=== PATIENT | female | born 1955 | race Caucasian/White ===

== ENCOUNTER 2017-02-20 12:03 | Inpatient (IN) | payer BC ==
[~2017-02-20] VITALS: Ht 157.5 cm; Wt 53.5 kg
[2017-02-20 12:03] VITALS: BP_SYST 163
[~2017-02-20 12:03] MED LIST: AMLO5TAB4 PO; FAMO20TA8 PO; HYDR-1189 PO; LOSA50TA3 PO; TRAM50TA92 PO
[2017-02-20] MEDS ORDERED: NACL 0.9% 1,000 ML IV SCH (12:37)
[2017-02-20] MEDS ORDERED: MORPHINE 4 MG/ML INJ. SYRINGE IVP ONE (12:45)
[2017-02-20] MEDS ORDERED: ONDANSETRON HCL 4 MG/2 ML VIAL IVP ONE (12:45)
[2017-02-20 12:51] LABS: BASOPHILS # (AUTO) 0.3 K/uL (0.0-0.2); BASOPHILS % (AUTO) 2.9 % (0.0-2.0); EOSINOPHILS % (AUTO) 0.1 % (0.0-4.0); HEMATOCRIT 49.8 % (36-48); LYMPHOCYTES # (AUTO) 0.9 K/uL (1.0-5.5); LYMPHOCYTES % (AUTO) 10.7 % (20.5-51.5); MEAN CORPUSCULAR HEMOGLOBIN 32 pg (27-31); MEAN CORPUSCULAR HGB CONC 34 % (32-36); MEAN CORPUSCULAR VOLUME 93 fL (79.0-98.0); MONOCYTES # (AUTO) 0.3 K/uL (0.0-1.0); MONOCYTES % (AUTO) 3.7 % (1.7-9.3); NEUTROPHILS # (AUTO) 7.2 K/uL (1.8-7.7); NEUTROPHILS % (AUTO) 82.6 % (40.0-70.0); PLATELET COUNT (AUTO) 301 K/uL (130-430); RED BLOOD CELL COUNT(AUTO) 5.35 MIL/uL (4.2-6.2); RED CELL DISTRIBUTION WIDTH 12.9 % (9.0-15.0); WHITE BLOOD COUNT (AUTO) 8.7 K/uL (4.8-10.8)
[2017-02-20 13:05] LABS: CALCIUM 9.4 mg/dL (8.4-11.0); CREATININE 0.65 mg/dL (0.55-1.30); POTASSIUM 3.5 mmol/L (3.5-5.1)
[2017-02-20 13:06] LABS: INR 1.1 (0.8-1.2); PROTHROMBIN TIME 12.3 SECS (9.5-12.5)
[2017-02-20 13:09] LABS: ALBUMIN 4.3 g/dL (3.4-4.8); TOTAL BILIRUBIN 0.4 mg/dL (0.0-1.0); TOTAL PROTEIN, SERUM 7.1 g/dL (6.4-8.3)
[2017-02-20] MEDS ORDERED: VANCOMYCIN HCL 1,000 MG in NS 250 ML IV ONE (14:15)
[2017-02-20] MEDS ORDERED: MORPHINE 2 MG/ML INJ. SYRINGE IVP ONE (14:30)
[2017-02-20] MEDS ORDERED: VANCOMYCIN HCL 1000 MG/VIAL IV ONE (15:04)
[2017-02-20 15:36] LABS: BILIRUBIN,URINE NEGATIVE (NEGATIVE); BLOOD, URINE 2+ (NEGATIVE); CLARITY/URINE CLOUDY (CLEAR); COLOR,URINE YELLOW (YELLOW); GLUCOSE,URINE NEGATIVE (NEGATIVE); KETONES,URINE 1+ (NEGATIVE); LEUKOCYTE ESTERASE ,URINE NEGATIVE (NEGATIVE); NITRITE, URINE NEGATIVE (NEGATIVE); PROTEIN URINE NEGATIVE (NEGATIVE); UROBILINOGEN,URINE 0.2 (0.2-1.0)
[2017-02-20 15:54] LABS: BACTERIA,URINE MODERATE /HPF (None Seen); MUCUS,URINE None Seen /LPF (None Seen); URINE AMORPHOUS PHOSPHATES 3+ /HPF (None Seen); WBC,URINE 0-3 /HPF (0-3)
[2017-02-20 17:00] VITALS: BP_SYST 134
[2017-02-20] MEDS ORDERED: ACETAMINOPHEN 325 MG TABLET PO PRN (17:00)
[2017-02-20] MEDS: D5NS 1,000 ML IV SCH (17:35)
[2017-02-20] MEDS: ONDANSETRON HCL 4 MG/2 ML VIAL IVP PRN (17:42)
[2017-02-20] MEDS: metroNIDAZOLE 500 mg/NS 100 ML IV SCH ×2 (17:42→21:31)
[2017-02-20] MEDS: MORPHINE 4 MG/ML INJ. SYRINGE IVP PRN ×2 (17:43→21:29)
[2017-02-20] MEDS: METOCLOPRAMIDE HCL 10 MG/2 ML VIAL IVP PRN (19:54)
[2017-02-20 20:00] VITALS: BP_SYST 121
[2017-02-21 00:05] VITALS: BP_SYST 124
[2017-02-21] MEDS: MORPHINE 4 MG/ML INJ. SYRINGE IVP PRN ×5 (03:09→23:47)
[2017-02-21] MEDS: ONDANSETRON HCL 4 MG/2 ML VIAL IVP PRN ×4 (03:09→23:47)
[2017-02-21 03:40] VITALS: BP_SYST 136
[2017-02-21] MEDS: metroNIDAZOLE 500 mg/NS 100 ML IV SCH ×3 (05:07→21:09)
[2017-02-21] MEDS: D5NS 1,000 ML IV SCH ×3 (05:07→23:52)
[2017-02-21 08:00] VITALS: BP_SYST 165
[2017-02-21] MEDS: LEVOFLOXACIN 500 MG/D5W 100 ML IV SCH (08:51)
[2017-02-21 12:48] VITALS: BP_SYST 147
[2017-02-21] MEDS: METOCLOPRAMIDE HCL 10 MG/2 ML VIAL IVP PRN (12:50)
[2017-02-21 16:00] VITALS: BP_SYST 139
[2017-02-21 20:00] VITALS: BP_SYST 151
[2017-02-21] MEDS: MORPHINE 2 MG/ML INJ. SYRINGE IVP PRN (20:29)
[2017-02-22 04:27] VITALS: BP_SYST 139
[2017-02-22] MEDS: metroNIDAZOLE 500 mg/NS 100 ML IV SCH ×3 (05:41→22:36)
[2017-02-22] MEDS: MORPHINE 4 MG/ML INJ. SYRINGE IVP PRN ×3 (05:50→22:38)
[2017-02-22] MEDS: METOCLOPRAMIDE HCL 10 MG/2 ML VIAL IVP PRN (05:51)
[2017-02-22] MEDS ORDERED: MEPERIDINE HCL/PF 100 MG/ML AMP ONE (07:53)
[2017-02-22] MEDS ORDERED: SIMETHICONE 40 MG/0.6 ML ML ONE (07:53)
[2017-02-22 08:00] VITALS: BP_SYST 141
[2017-02-22] MEDS: LEVOFLOXACIN 500 MG/D5W 100 ML IV SCH (10:03)
[2017-02-22] MEDS: D5NS 1,000 ML IV SCH ×2 (10:04→18:23)
[2017-02-22] MEDS: ONDANSETRON HCL 4 MG/2 ML VIAL IVP PRN ×2 (10:10→18:31)
[2017-02-22 12:00] VITALS: BP_SYST 107
[2017-02-22] MEDS: MIDAZOLAM HCL 5 MG/5 ML VIAL ONE ×4 (13:43→13:50)
[2017-02-22] MEDS ORDERED: SORBITOL 70% SOLUTION, 30 ML UDBTL PO ONE (14:00)
[2017-02-22] MEDS ORDERED: PANTOPRAZOLE SODIUM 40 MG TAB PO ONE (14:15)
[2017-02-22] MEDS: LACTULOSE 20 GM/30 ML UDC PO SCH ×3 (15:28→22:36)
[2017-02-22 16:00] VITALS: BP_SYST 135
[2017-02-22] MEDS ORDERED: BISACODYL 5 MG TABLET.DR (DULCOLAX) PO ONE (17:00)
[2017-02-22] MEDS ORDERED: MAGNESIUM CITRATE 300 ML ORAL SOLUTION PO ONE (19:00)
[2017-02-22 19:50] VITALS: BP_SYST 155
[2017-02-23 01:15] VITALS: BP_SYST 154
[2017-02-23] MEDS: MORPHINE 4 MG/ML INJ. SYRINGE IVP PRN (02:32)
[2017-02-23 04:09] VITALS: BP_SYST 156
[2017-02-23] MEDS: metroNIDAZOLE 500 mg/NS 100 ML IV SCH ×3 (05:30→21:08)
[2017-02-23] MEDS: D5NS 1,000 ML IV SCH ×2 (05:33→23:32)
[2017-02-23] MEDS ORDERED: SIMETHICONE 40 MG/0.6 ML ML ONE (06:51)
[2017-02-23] MEDS ORDERED: MEPERIDINE HCL/PF 100 MG/ML AMP ONE (06:55)
[2017-02-23] MEDS: MIDAZOLAM HCL 5 MG/5 ML VIAL ONE ×3 (07:17→07:24)
[2017-02-23] MEDS: MEPERIDINE HCL/PF 100 MG/ML AMP ONE ×2 (07:17→07:27)
[2017-02-23 07:20] LABS: BASOPHILS # (AUTO) 0.1 K/uL (0.0-0.2); BASOPHILS % (AUTO) 0.6 % (0.0-2.0); EOSINOPHILS # (AUTO) 0.1 K/uL (0.0-0.4); EOSINOPHILS % (AUTO) 1.5 % (0.0-4.0); HEMATOCRIT 45.9 % (36-48); HEMOGLOBIN 15.7 g/dL (12.0-16.0); LYMPHOCYTES # (AUTO) 2.6 K/uL (1.0-5.5); LYMPHOCYTES % (AUTO) 29.2 % (20.5-51.5); MEAN CORPUSCULAR HEMOGLOBIN 32 pg (27-31); MEAN CORPUSCULAR HGB CONC 34 % (32-36); MEAN CORPUSCULAR VOLUME 94 fL (79.0-98.0); MONOCYTES # (AUTO) 0.9 K/uL (0.0-1.0); MONOCYTES % (AUTO) 10.7 % (1.7-9.3); NEUTROPHILS # (AUTO) 5.1 K/uL (1.8-7.7); PLATELET COUNT (AUTO) 260 K/uL (130-430); RED BLOOD CELL COUNT(AUTO) 4.89 MIL/uL (4.2-6.2); RED CELL DISTRIBUTION WIDTH 12.5 % (9.0-15.0); WHITE BLOOD COUNT (AUTO) 8.8 K/uL (4.8-10.8)
[2017-02-23 07:29] LABS: CALCIUM 8.6 mg/dL (8.4-11.0)
[2017-02-23 07:33] LABS: INR 1.1 (0.8-1.2); PROTHROMBIN TIME 12.1 SECS (9.5-12.5)
[2017-02-23 08:17] LABS: CREATININE 0.69 mg/dL (0.55-1.30)
[2017-02-23 08:30] VITALS: BP_SYST 150
[2017-02-23] MEDS ORDERED: DIPHENHYDRAMINE INJ 50 MG/ML VIAL ONE (08:43)
[2017-02-23] MEDS: LEVOFLOXACIN 500 MG/D5W 100 ML IV SCH (09:55)
[2017-02-23] MEDS: PANTOPRAZOLE SODIUM 40 MG TAB PO SCH (09:55)
[2017-02-23 12:00] VITALS: BP_SYST 154
[2017-02-23] MEDS ORDERED: IOHEXOL 350 mgI/mL, 150 ML INFUS..BTL IV ONE (12:21)
[2017-02-23 16:58] VITALS: BP_SYST 147
[2017-02-23] MEDS: ONDANSETRON HCL 4 MG/2 ML VIAL IVP PRN (18:11)
[2017-02-23 20:00] VITALS: BP_SYST 151
[2017-02-23] MEDS: MORPHINE 2 MG/ML INJ. SYRINGE IVP PRN (21:10)
[2017-02-24 00:42] VITALS: BP_SYST 143
[2017-02-24 04:00] VITALS: BP_SYST 136
[2017-02-24] MEDS: metroNIDAZOLE 500 mg/NS 100 ML IV SCH (05:00)
[2017-02-24 08:00] VITALS: BP_SYST 161
[2017-02-24] MEDS: LEVOFLOXACIN 500 MG/D5W 100 ML IV SCH (08:45)
[2017-02-24] MEDS: PANTOPRAZOLE SODIUM 40 MG TAB PO SCH (08:45)
[2017-02-24] MEDS ORDERED: LEVO500T20 PO (11:25)
[2017-02-24] MEDS ORDERED: METR500T PO (11:25)
[2017-02-24 11:27] VITALS: BP_SYST 161
== END 2017-02-24 11:45 | disposition home or self-care (01) | DRG 391 ==
LOC: SED 12:03 → SMU 14:52
PROVIDERS: ADMIT Internal Medicine Hospice and Palliative Medicine; ATTEND Internal Medicine Hospice and Palliative Medicine
PROC: 0DB68ZX Excision of Stomach, Via Natural or Artificial Opening Endoscopic, Diagnostic (ICD-10-PCS; 2017-02-22)
PROC: 0DB98ZX Excision of Duodenum, Via Natural or Artificial Opening Endoscopic, Diagnostic (ICD-10-PCS; principal; 2017-02-22 13:00)
PROC: 0DBB8ZX Excision of Ileum, Via Natural or Artificial Opening Endoscopic, Diagnostic (ICD-10-PCS; 2017-02-23)
PROC: 0DBE8ZX Excision of Large Intestine, Via Natural or Artificial Opening Endoscopic, Diagnostic (ICD-10-PCS; 2017-02-23)
PROC: 0DBL8ZX Excision of Transverse Colon, Via Natural or Artificial Opening Endoscopic, Diagnostic (ICD-10-PCS; 2017-02-23)
DX: K57.32 Diverticulitis of large intestine without perforation or abscess without bleeding (principal); K55.039 Acute (reversible) ischemia of large intestine, extent unspecified; K55.1 Chronic vascular disorders of intestine; I10 Essential (primary) hypertension; F17.200 Nicotine dependence, unspecified, uncomplicated; K29.70 Gastritis, unspecified, without bleeding; K58.9 Irritable bowel syndrome, unspecified; K63.5 Polyp of colon; D12.3 Benign neoplasm of transverse colon; K64.8 Other hemorrhoids; R63.4 Abnormal weight loss; E78.00 Pure hypercholesterolemia, unspecified; Z90.49 Acquired absence of other specified parts of digestive tract; Z79.899 Other long term (current) drug therapy; Z90.710 Acquired absence of both cervix and uterus; K90.0 Celiac disease
CPT/HCPCS: 36415; 43239; 45380; 71010; 74175; 80048; 80053; 81000-TC; 83605; 83690-TC; 84484; 85025; 85610-TC; 85651-TC; 85730-TC; 87040-TC; 87081; 87086; 88305; 88312; 93005; 96365; 96367; 96368; 96375; 96376; 99285; J1200; J1956; J2175; J2250; J2270; J2405; J2765; J3370; J3490; J7030; J7042; J7060; Q9967

== ENCOUNTER 2017-05-15 15:37 | Inpatient (IN) | payer BC ==
[~2017-05-15] VITALS: Ht 160 cm; Wt 52.2 kg
[2017-05-15 15:37] VITALS: BP_SYST 147
[~2017-05-15 15:37] MED LIST changes: +LEVO500T20 PO; +METR500T PO
[2017-05-15] MEDS ORDERED: PIPERACILLIN/TAZO 3.38 GM in NS 50 ML IV ONE (16:00)
[2017-05-15] MEDS ORDERED: MORPHINE 4 MG/ML INJ. SYRINGE IVP ONE (16:00)
[2017-05-15] MEDS ORDERED: DIPHENHYDRAMINE INJ 50 MG/ML VIAL IVP ONE (16:00)
[2017-05-15] MEDS ORDERED: PIPERACILLIN/TAZOBACTAM 3.375 GM/VIAL (ZOSYN) IV ONE (16:08)
[2017-05-15 16:20] LABS: BASOPHILS % (AUTO) 0.3 % (0.0-2.0); HEMATOCRIT 51.8 % (36-48); HEMOGLOBIN 17.4 g/dL (12.0-16.0); LYMPHOCYTES # (AUTO) 0.6 K/uL (1.0-5.5); LYMPHOCYTES % (AUTO) 6.3 % (20.5-51.5); MEAN CORPUSCULAR HEMOGLOBIN 32 pg (27-31); MEAN CORPUSCULAR HGB CONC 34 % (32-36); MEAN CORPUSCULAR VOLUME 95 fL (79.0-98.0); MONOCYTES # (AUTO) 0.2 K/uL (0.0-1.0); MONOCYTES % (AUTO) 2.4 % (1.7-9.3); PLATELET COUNT (AUTO) 319 K/uL (130-430); RED BLOOD CELL COUNT(AUTO) 5.46 MIL/uL (4.2-6.2); RED CELL DISTRIBUTION WIDTH 13.1 % (9.0-15.0); WHITE BLOOD COUNT (AUTO) 9.8 K/uL (4.8-10.8)
[2017-05-15 16:29] LABS: CALCIUM 9.5 mg/dL (8.4-11.0); CREATININE 0.59 mg/dL (0.55-1.30); POTASSIUM 3.9 mmol/L (3.5-5.1)
[2017-05-15 16:33] LABS: ALBUMIN 4.6 g/dL (3.4-4.8); INR 1.1 (0.8-1.2); PROTHROMBIN TIME 12.1 SECS (9.5-12.5); TOTAL BILIRUBIN 0.8 mg/dL (0.0-1.0)
[2017-05-15 16:45] LABS: BILIRUBIN,URINE NEGATIVE (NEGATIVE); BLOOD, URINE 2+ (NEGATIVE); CLARITY/URINE HAZY (CLEAR); COLOR,URINE YELLOW (YELLOW); GLUCOSE,URINE NEGATIVE (NEGATIVE); KETONES,URINE 3+ (NEGATIVE); LEUKOCYTE ESTERASE ,URINE NEGATIVE (NEGATIVE); NITRITE, URINE NEGATIVE (NEGATIVE); PROTEIN URINE TRACE (NEGATIVE); UROBILINOGEN,URINE 0.2 (0.2-1.0)
[2017-05-15 17:54] LABS: BACTERIA,URINE FEW /HPF (None Seen); WBC,URINE 0-3 /HPF (0-3)
[2017-05-15 17:55] LABS: COARSE GRANULAR CASTS,URINE 0-10 /LPF (None Seen); MUCUS,URINE 2+ /LPF (None Seen); URINE AMORPHOUS PHOSPHATES 2+ /HPF (None Seen)
[2017-05-15] MEDS ORDERED: NACL 0.9% 1,000 ML IV ONE (18:00)
[2017-05-15] MEDS ORDERED: ONDANSETRON HCL 4 MG/2 ML VIAL IVP ONE (18:30)
[2017-05-15] MEDS ORDERED: HYDROmorphone 1 MG INJ. 1 MG/ML AMPUL IVP ONE (18:30)
[2017-05-15 18:45] VITALS: BP_SYST 159
[2017-05-15 19:15] VITALS: BP_SYST 125
[2017-05-15] MEDS ORDERED: cloNIDine HCL 0.1 MG TABLET PO PRN (19:15)
[2017-05-15] MEDS ORDERED: ACETAMINOPHEN 325 MG TABLET PO PRN (19:15)
[2017-05-15 19:30] VITALS: BP_SYST 108
[2017-05-15] MEDS: FAMOTIDINE PF 20 MG/2 ML VIAL IVP SCH (20:40)
[2017-05-15] MEDS: DOCUSATE SODIUM 250 MG CAPSULE PO SCH (20:40)
[2017-05-15] MEDS: LR 1,000 ML IV SCH (20:43)
[2017-05-16] VITALS: BP_SYST 144
[2017-05-16] MEDS: PIPERACILLIN/TAZO 3.375/DEX-IS 50 ML IV SCH ×5 (00:24→23:34)
[2017-05-16] MEDS: HYDROmorphone 1 MG INJ. 1 MG/ML AMPUL IVP PRN ×4 (00:25→17:44)
[2017-05-16] MEDS: ONDANSETRON HCL 4 MG/2 ML VIAL IVP PRN ×2 (03:28→20:10)
[2017-05-16] MEDS: MORPHINE 4 MG/ML INJ. SYRINGE IVP PRN (03:29)
[2017-05-16 05:54] VITALS: BP_SYST 120
[2017-05-16 07:13] LABS: BASOPHILS # (AUTO) 0.1 K/uL (0.0-0.2); BASOPHILS % (AUTO) 0.5 % (0.0-2.0); EOSINOPHILS # (AUTO) 0.1 K/uL (0.0-0.4); EOSINOPHILS % (AUTO) 0.4 % (0.0-4.0); HEMATOCRIT 41.8 % (36-48); HEMOGLOBIN 14.3 g/dL (12.0-16.0); LYMPHOCYTES # (AUTO) 2.8 K/uL (1.0-5.5); LYMPHOCYTES % (AUTO) 21.2 % (20.5-51.5); MEAN CORPUSCULAR HEMOGLOBIN 33 pg (27-31); MEAN CORPUSCULAR HGB CONC 34 % (32-36); MEAN CORPUSCULAR VOLUME 96 fL (79.0-98.0); MONOCYTES # (AUTO) 1.4 K/uL (0.0-1.0); MONOCYTES % (AUTO) 10.4 % (1.7-9.3); NEUTROPHILS # (AUTO) 8.8 K/uL (1.8-7.7); NEUTROPHILS % (AUTO) 67.5 % (40.0-70.0); PLATELET COUNT (AUTO) 246 K/uL (130-430); RED BLOOD CELL COUNT(AUTO) 4.37 MIL/uL (4.2-6.2); RED CELL DISTRIBUTION WIDTH 12.9 % (9.0-15.0); WHITE BLOOD COUNT (AUTO) 13.2 K/uL (4.8-10.8)
[2017-05-16 07:30] LABS: ALANINE AMINOTRANSFERASE 18 U/L (12-78); ALBUMIN 3.4 g/dL (3.4-4.8); ANION GAP 6 (5-15); ASPARTATE AMINOTRANSFERASE 14 U/L (10-37); CALCIUM 8.2 mg/dL (8.4-11.0); CHLORIDE 99 mmol/L (98-107); CREATININE 0.61 mg/dL (0.55-1.30); GLUCOSE 102 mg/dL (70-99); POTASSIUM 3.3 mmol/L (3.5-5.1); SODIUM SERUM 135 mmol/L (136-145); TOTAL BILIRUBIN 0.7 mg/dL (0.0-1.0); TOTAL PROTEIN, SERUM 6.2 g/dL (6.4-8.3); UREA NITROGEN, BLOOD 5 mg/dL (8-21)
[2017-05-16 07:36] LABS: C-REACTIVE PROTEIN QUANT < 0.2 mg/dL (0-0.5); GFR AFRICAN AMERICAN 129 mL/min (>90)
[2017-05-16] MEDS: LOSARTAN POTASSIUM 50 MG TABLET (COZAAR) PO SCH (08:28)
[2017-05-16] MEDS: DOCUSATE SODIUM 250 MG CAPSULE PO SCH ×2 (08:28→20:10)
[2017-05-16] MEDS: FAMOTIDINE PF 20 MG/2 ML VIAL IVP SCH ×2 (08:28→20:11)
[2017-05-16] MEDS: amLODIPine BESYLATE 5 MG TABLET PO SCH (08:29)
[2017-05-16] MEDS: NICOTINE 21 MG/24 HR PATCH.TD24 TD SCH (08:29)
[2017-05-16 08:36] VITALS: BP_SYST 135
[2017-05-16 08:57] LABS: ERYTHROCYTE SEDIMENTATION RATE 1 MM/HR (0-20)
[2017-05-16] MEDS: LR 1,000 ML IV SCH ×2 (10:58→21:57)
[2017-05-16] MEDS ORDERED: POTASSIUM CHLORIDE 20 MEQ TAB.PRT.SR PO ONE (11:15)
[2017-05-16 12:45] VITALS: BP_SYST 124
[2017-05-16] MEDS: HYDROcodone/ACETAMIN 5-325 MG TAB (NORCO/ VICODIN) PO PRN (14:32)
[2017-05-16] MEDS: metroNIDAZOLE 500 MG TABLET PO SCH ×2 (14:34→21:57)
[2017-05-16 16:13] VITALS: BP_SYST 117
[2017-05-16 20:00] VITALS: BP_SYST 130
[2017-05-17] VITALS (7 sets, daily range): BP systolic 127–159
[2017-05-17] MEDS: LR 1,000 ML IV SCH ×3 (01:15→20:13)
[2017-05-17] MEDS: HYDROcodone/ACETAMIN 5-325 MG TAB (NORCO/ VICODIN) PO PRN (04:57)
[2017-05-17] MEDS: metroNIDAZOLE 500 MG TABLET PO SCH ×3 (05:47→21:33)
[2017-05-17] MEDS: PIPERACILLIN/TAZO 3.375/DEX-IS 50 ML IV SCH ×4 (05:49→23:09)
[2017-05-17 07:27] LABS: ALBUMIN 3.4 g/dL (3.4-4.8); CALCIUM 8.3 mg/dL (8.4-11.0); CREATININE 0.55 mg/dL (0.55-1.30); POTASSIUM 3.6 mmol/L (3.5-5.1); TOTAL BILIRUBIN 0.6 mg/dL (0.0-1.0); TOTAL PROTEIN, SERUM 6.2 g/dL (6.4-8.3)
[2017-05-17 07:29] LABS: BASOPHILS # (AUTO) 0.1 K/uL (0.0-0.2); EOSINOPHILS # (AUTO) 0.1 K/uL (0.0-0.4); EOSINOPHILS % (AUTO) 0.9 % (0.0-4.0); HEMATOCRIT 44.2 % (36-48); HEMOGLOBIN 14.9 g/dL (12.0-16.0); LYMPHOCYTES # (AUTO) 1.8 K/uL (1.0-5.5); MEAN CORPUSCULAR HEMOGLOBIN 32 pg (27-31); MEAN CORPUSCULAR HGB CONC 34 % (32-36); MEAN CORPUSCULAR VOLUME 96 fL (79.0-98.0); MONOCYTES # (AUTO) 0.8 K/uL (0.0-1.0); MONOCYTES % (AUTO) 10.5 % (1.7-9.3); NEUTROPHILS # (AUTO) 4.8 K/uL (1.8-7.7); NEUTROPHILS % (AUTO) 64.6 % (40.0-70.0); PLATELET COUNT (AUTO) 244 K/uL (130-430); RED BLOOD CELL COUNT(AUTO) 4.63 MIL/uL (4.2-6.2); RED CELL DISTRIBUTION WIDTH 13.2 % (9.0-15.0); WHITE BLOOD COUNT (AUTO) 7.6 K/uL (4.8-10.8)
[2017-05-17] MEDS: HYDROmorphone 1 MG INJ. 1 MG/ML AMPUL IVP PRN ×3 (08:57→20:25)
[2017-05-17] MEDS: DOCUSATE SODIUM 250 MG CAPSULE PO SCH (09:00)
[2017-05-17] MEDS: FAMOTIDINE PF 20 MG/2 ML VIAL IVP SCH ×2 (09:00→20:12)
[2017-05-17] MEDS: ONDANSETRON HCL 4 MG/2 ML VIAL IVP PRN ×2 (09:00→16:23)
[2017-05-17] MEDS: NICOTINE 21 MG/24 HR PATCH.TD24 TD SCH (09:01)
[2017-05-17] MEDS: amLODIPine BESYLATE 5 MG TABLET PO SCH (10:25)
[2017-05-17] MEDS: LOSARTAN POTASSIUM 50 MG TABLET (COZAAR) PO SCH (10:25)
[2017-05-17] MEDS ORDERED: DICYCLOMINE HCL 10 MG CAPSULE PO ONE (10:30)
[2017-05-17] MEDS: DICYCLOMINE HCL 10 MG CAPSULE PO SCH (20:12)
[2017-05-17] MEDS: MORPHINE 4 MG/ML INJ. SYRINGE IVP PRN (23:15)
[2017-05-18 01:02] VITALS: BP_SYST 154
[2017-05-18] MEDS: metroNIDAZOLE 500 MG TABLET PO SCH (05:11)
[2017-05-18] MEDS: PIPERACILLIN/TAZO 3.375/DEX-IS 50 ML IV SCH (05:12)
[2017-05-18 06:06] VITALS: BP_SYST 153
[2017-05-18] MEDS: LR 1,000 ML IV SCH (07:15)
[2017-05-18] MEDS: LOSARTAN POTASSIUM 50 MG TABLET (COZAAR) PO SCH (08:24)
[2017-05-18] MEDS: NICOTINE 21 MG/24 HR PATCH.TD24 TD SCH (08:24)
[2017-05-18] MEDS: DICYCLOMINE HCL 10 MG CAPSULE PO SCH (08:24)
[2017-05-18] MEDS: FAMOTIDINE PF 20 MG/2 ML VIAL IVP SCH (08:24)
[2017-05-18] MEDS: amLODIPine BESYLATE 5 MG TABLET PO SCH (08:25)
[2017-05-18] MEDS ORDERED: DICY10CA59 (10:41)
[2017-05-18] MEDS ORDERED: FLA250 PO (10:41)
== END 2017-05-18 11:31 | disposition home or self-care (01) | DRG 392 ==
LOC: SED 15:37 → STU 18:20
PROVIDERS: ADMIT Internal Medicine; ATTEND Internal Medicine Hospice and Palliative Medicine
DX: K57.92 Diverticulitis of intestine, part unspecified, without perforation or abscess without bleeding (principal); K55.1 Chronic vascular disorders of intestine; F41.9 Anxiety disorder, unspecified; I10 Essential (primary) hypertension; F17.200 Nicotine dependence, unspecified, uncomplicated; Z90.49 Acquired absence of other specified parts of digestive tract; Z90.710 Acquired absence of both cervix and uterus; Z79.899 Other long term (current) drug therapy; Z71.6 Tobacco abuse counseling
CPT/HCPCS: 36415; 71010; 76856-TC; 80053; 80061; 81000-TC; 83605; 83690-TC; 85025; 85610-TC; 85651-TC; 86140; 87040-TC; 93005; 96361; 96365; 96375; 99285; J1170; J1200; J2270; J2405; J2543; J3490; J7030; J7120

== ENCOUNTER 2017-05-20 10:23 | Inpatient (IN) | payer BC ==
[~2017-05-20] VITALS: Ht 162.6 cm; Wt 50.8 kg
[~2017-05-20 10:23] MED LIST changes: +DICY10CA59; +FLA250 PO; -METR500T PO
[2017-05-20 10:25] VITALS: BP_SYST 169
[2017-05-20] MEDS ORDERED: ONDANSETRON HCL 4 MG/2 ML VIAL IVP ONE ×2 (10:45→12:30)
[2017-05-20] MEDS ORDERED: fentaNYL CITRATE/PF 100 MCG/2 ML AMP IVP ONE (10:45)
[2017-05-20 10:58] LABS: BASOPHILS # (AUTO) 0.2 K/uL (0.0-0.2); BASOPHILS % (AUTO) 1.7 % (0.0-2.0); EOSINOPHILS % (AUTO) 0.2 % (0.0-4.0); HEMOGLOBIN 17.4 g/dL (12.0-16.0); LYMPHOCYTES # (AUTO) 1.2 K/uL (1.0-5.5); LYMPHOCYTES % (AUTO) 12.4 % (20.5-51.5); MEAN CORPUSCULAR HEMOGLOBIN 32 pg (27-31); MEAN CORPUSCULAR HGB CONC 33 % (32-36); MEAN CORPUSCULAR VOLUME 96 fL (79.0-98.0); MONOCYTES # (AUTO) 0.8 K/uL (0.0-1.0); MONOCYTES % (AUTO) 8.1 % (1.7-9.3); NEUTROPHILS # (AUTO) 7.3 K/uL (1.8-7.7); NEUTROPHILS % (AUTO) 77.6 % (40.0-70.0); PLATELET COUNT (AUTO) 277 K/uL (130-430); RED CELL DISTRIBUTION WIDTH 13.1 % (9.0-15.0); WHITE BLOOD COUNT (AUTO) 9.5 K/uL (4.8-10.8)
[2017-05-20] MEDS ORDERED: IOHEXOL 100 ML IV ONE (10:59)
[2017-05-20 11:09] LABS: CALCIUM 9.4 mg/dL (8.4-11.0); CREATININE 0.8 mg/dL (0.55-1.30); POTASSIUM 3.3 mmol/L (3.5-5.1)
[2017-05-20 11:11] LABS: INR 1.1 (0.8-1.2); PROTHROMBIN TIME 11.8 SECS (9.5-12.5)
[2017-05-20 11:14] LABS: ALBUMIN 4.4 g/dL (3.4-4.8); TOTAL BILIRUBIN 0.5 mg/dL (0.0-1.0); TOTAL PROTEIN, SERUM 7.7 g/dL (6.4-8.3)
[2017-05-20 11:22] LABS: BILIRUBIN,URINE NEGATIVE (NEGATIVE); BLOOD, URINE 2+ (NEGATIVE); CLARITY/URINE SL CLOUDY (CLEAR); COLOR,URINE YELLOW (YELLOW); GLUCOSE,URINE NEGATIVE (NEGATIVE); KETONES,URINE 1+ (NEGATIVE); LEUKOCYTE ESTERASE ,URINE NEGATIVE (NEGATIVE); NITRITE, URINE NEGATIVE (NEGATIVE); PH,URINE 8.5 (5.0-8.0); PROTEIN URINE 1+ (NEGATIVE); UROBILINOGEN,URINE 0.2 (0.2-1.0)
[2017-05-20 11:29] LABS: BACTERIA,URINE FEW /HPF (None Seen); WBC,URINE NONE SEEN /HPF (0-3)
[2017-05-20 11:30] LABS: MUCUS,URINE None Seen /LPF (None Seen); URINE AMORPHOUS PHOSPHATES 3+ /HPF (None Seen)
[2017-05-20] MEDS ORDERED: MORPHINE 4 MG/ML INJ. SYRINGE IVP ONE (12:30)
[2017-05-20] MEDS ORDERED: LORazepam 2 MG/ML VIAL (FOR ER USE) IVP ONE (13:00)
[2017-05-20 13:32] VITALS: BP_SYST 151
[2017-05-20] MEDS ORDERED: TEMAZEPAM 15 MG CAPSULE PO PRN (16:15)
[2017-05-20] MEDS ORDERED: POTASSIUM CHLORIDE 40 MEQ, LIDOCAINE JECT 2% PF 100 MG 50 MG in NS 250 ML IV ONE (16:15)
[2017-05-20] MEDS: LR 1,000 ML IV SCH (17:56)
[2017-05-20] MEDS: MORPHINE 4 MG/ML INJ. SYRINGE IVP PRN (19:55)
[2017-05-20 19:58] VITALS: BP_SYST 114
[2017-05-20] MEDS: ISOSORBIDE DINITRATE 10 MG TABLET (ISORDIL) PO SCH (20:03)
[2017-05-20] MEDS: metroNIDAZOLE 250 MG TABLET PO SCH (22:08)
[2017-05-20] MEDS: HYDROcodone/ACETAMIN 5-325 MG TAB (NORCO/ VICODIN) PO PRN (22:08)
[2017-05-21] VITALS: BP_SYST 137
[2017-05-21] MEDS: LR 1,000 ML IV SCH ×3 (03:25→23:38)
[2017-05-21 03:58] VITALS: BP_SYST 137
[2017-05-21] MEDS: metroNIDAZOLE 250 MG TABLET PO SCH ×3 (05:53→21:26)
[2017-05-21] MEDS: HYDROcodone/ACETAMIN 5-325 MG TAB (NORCO/ VICODIN) PO PRN (05:56)
[2017-05-21 06:49] LABS: BASOPHILS % (AUTO) 0.5 % (0.0-2.0); EOSINOPHILS # (AUTO) 0.1 K/uL (0.0-0.4); EOSINOPHILS % (AUTO) 0.8 % (0.0-4.0); HEMATOCRIT 42.4 % (36-48); HEMOGLOBIN 14.4 g/dL (12.0-16.0); LYMPHOCYTES # (AUTO) 2.7 K/uL (1.0-5.5); LYMPHOCYTES % (AUTO) 29.4 % (20.5-51.5); MEAN CORPUSCULAR HEMOGLOBIN 33 pg (27-31); MEAN CORPUSCULAR HGB CONC 34 % (32-36); MEAN CORPUSCULAR VOLUME 97 fL (79.0-98.0); MONOCYTES % (AUTO) 10.6 % (1.7-9.3); NEUTROPHILS # (AUTO) 5.3 K/uL (1.8-7.7); NEUTROPHILS % (AUTO) 58.7 % (40.0-70.0); PLATELET COUNT (AUTO) 234 K/uL (130-430); RED BLOOD CELL COUNT(AUTO) 4.36 MIL/uL (4.2-6.2); RED CELL DISTRIBUTION WIDTH 12.9 % (9.0-15.0); WHITE BLOOD COUNT (AUTO) 9.1 K/uL (4.8-10.8)
[2017-05-21 07:15] LABS: ALBUMIN 3.3 g/dL (3.4-4.8); CALCIUM 8.2 mg/dL (8.4-11.0); CREATININE 0.54 mg/dL (0.55-1.30); POTASSIUM 3.2 mmol/L (3.5-5.1); TOTAL BILIRUBIN 0.7 mg/dL (0.0-1.0)
[2017-05-21 07:53] LABS: ERYTHROCYTE SEDIMENTATION RATE 2 MM/HR (0-20)
[2017-05-21 08:00] VITALS: BP_SYST 139
[2017-05-21] MEDS: FAMOTIDINE 20 MG TABLET PO SCH (08:46)
[2017-05-21] MEDS: LOSARTAN POTASSIUM 50 MG TABLET (COZAAR) PO SCH (08:47)
[2017-05-21] MEDS: amLODIPine BESYLATE 5 MG TABLET PO SCH (08:48)
[2017-05-21] MEDS: ISOSORBIDE DINITRATE 10 MG TABLET (ISORDIL) PO SCH (08:48)
[2017-05-21] MEDS: LEVOFLOXACIN 500 MG TABLET PO SCH (09:31)
[2017-05-21] MEDS: MORPHINE 4 MG/ML INJ. SYRINGE IVP PRN ×3 (10:32→21:25)
[2017-05-21] MEDS ORDERED: POTASSIUM CHLORIDE 20 MEQ TAB.PRT.SR PO ONE (11:00)
[2017-05-21] MEDS: ONDANSETRON HCL 4 MG/2 ML VIAL IVP PRN ×2 (11:05→23:43)
[2017-05-21 12:03] VITALS: BP_SYST 129
[2017-05-21 16:01] VITALS: BP_SYST 139
[2017-05-21] MEDS: KETOROLAC TROMETHAMINE 15 MG VIAL IVP PRN (17:52)
[2017-05-21] MEDS: DICYCLOMINE HCL 20 MG/2 ML AMP IM SCH ×2 (18:09→23:38)
[2017-05-21 20:35] VITALS: BP_SYST 138
[2017-05-22 00:12] VITALS: BP_SYST 142
[2017-05-22 04:21] VITALS: BP_SYST 131
[2017-05-22] MEDS: DICYCLOMINE HCL 20 MG/2 ML AMP IM SCH ×3 (06:27→17:52)
[2017-05-22] MEDS: metroNIDAZOLE 250 MG TABLET PO SCH ×3 (06:27→21:29)
[2017-05-22] MEDS: FAMOTIDINE 20 MG TABLET PO SCH (08:45)
[2017-05-22] MEDS: LR 1,000 ML IV SCH ×2 (08:45→17:53)
[2017-05-22] MEDS: LOSARTAN POTASSIUM 50 MG TABLET (COZAAR) PO SCH (08:47)
[2017-05-22] MEDS: amLODIPine BESYLATE 5 MG TABLET PO SCH (08:48)
[2017-05-22] MEDS: KETOROLAC TROMETHAMINE 15 MG VIAL IVP PRN ×2 (08:52→19:46)
[2017-05-22 08:55] VITALS: BP_SYST 136
[2017-05-22] MEDS: LEVOFLOXACIN 500 MG TABLET PO SCH (09:55)
[2017-05-22] MEDS: MORPHINE 4 MG/ML INJ. SYRINGE IVP PRN ×2 (11:25→17:09)
[2017-05-22] MEDS ORDERED: KCL 40 mEq in 100 mL (PREMIX) 100 ML IV ONE (11:30)
[2017-05-22 11:55] LABS: BASOPHILS # (AUTO) 0.1 K/uL (0.0-0.2); EOSINOPHILS # (AUTO) 0.1 K/uL (0.0-0.4); EOSINOPHILS % (AUTO) 0.8 % (0.0-4.0); HEMATOCRIT 43.5 % (36-48); HEMOGLOBIN 14.8 g/dL (12.0-16.0); LYMPHOCYTES # (AUTO) 2.1 K/uL (1.0-5.5); LYMPHOCYTES % (AUTO) 24.2 % (20.5-51.5); MEAN CORPUSCULAR HEMOGLOBIN 33 pg (27-31); MEAN CORPUSCULAR HGB CONC 34 % (32-36); MEAN CORPUSCULAR VOLUME 95 fL (79.0-98.0); MONOCYTES # (AUTO) 1.1 K/uL (0.0-1.0); MONOCYTES % (AUTO) 12.6 % (1.7-9.3); NEUTROPHILS # (AUTO) 5.3 K/uL (1.8-7.7); NEUTROPHILS % (AUTO) 61.4 % (40.0-70.0); PLATELET COUNT (AUTO) 233 K/uL (130-430); RED BLOOD CELL COUNT(AUTO) 4.56 MIL/uL (4.2-6.2); RED CELL DISTRIBUTION WIDTH 12.8 % (9.0-15.0); WHITE BLOOD COUNT (AUTO) 8.7 K/uL (4.8-10.8)
[2017-05-22 12:07] LABS: CALCIUM 8.4 mg/dL (8.4-11.0); CREATININE 0.52 mg/dL (0.55-1.30); POTASSIUM 3.8 mmol/L (3.5-5.1)
[2017-05-22 12:28] VITALS: BP_SYST 112
[2017-05-22 16:27] VITALS: BP_SYST 128
[2017-05-22 19:40] VITALS: BP_SYST 130
[2017-05-23] MEDS: HYDROcodone/ACETAMIN 5-325 MG TAB (NORCO/ VICODIN) PO PRN ×2 (00:01→06:07)
[2017-05-23] MEDS: DICYCLOMINE HCL 20 MG/2 ML AMP IM SCH ×5 (00:01→23:51)
[2017-05-23 01:23] VITALS: BP_SYST 133
[2017-05-23] MEDS: LR 1,000 ML IV SCH ×3 (03:57→23:16)
[2017-05-23 05:33] VITALS: BP_SYST 126
[2017-05-23] MEDS: metroNIDAZOLE 250 MG TABLET PO SCH ×3 (06:08→23:15)
[2017-05-23] MEDS: NEOMYCIN SULFATE 500 MG TABLET PO SCH ×4 (06:08→23:15)
[2017-05-23] MEDS: ONDANSETRON HCL 4 MG/2 ML VIAL IVP PRN (07:30)
[2017-05-23 07:32] VITALS: BP_SYST 127; BP_SYST 145
[2017-05-23] MEDS: KETOROLAC TROMETHAMINE 15 MG VIAL IVP PRN ×2 (08:41→17:24)
[2017-05-23] MEDS: LOSARTAN POTASSIUM 50 MG TABLET (COZAAR) PO SCH (08:41)
[2017-05-23] MEDS: FAMOTIDINE 20 MG TABLET PO SCH (08:41)
[2017-05-23] MEDS: amLODIPine BESYLATE 5 MG TABLET PO SCH (08:41)
[2017-05-23] MEDS: LEVOFLOXACIN 500 MG TABLET PO SCH (10:31)
[2017-05-23] MEDS: MORPHINE 4 MG/ML INJ. SYRINGE IVP PRN ×3 (10:40→20:24)
[2017-05-23 12:16] VITALS: BP_SYST 133
[2017-05-23 16:04] VITALS: BP_SYST 122
[2017-05-23] MEDS ORDERED: MAGNESIUM CITRATE 300 ML ORAL SOLUTION PO ONE (17:45)
[2017-05-23] MEDS: NICOTINE 14 MG/24 HR PATCH.TD24 TD SCH (20:15)
[2017-05-24 00:14] VITALS: BP_SYST 139
[2017-05-24] MEDS: MORPHINE 4 MG/ML INJ. SYRINGE IVP PRN ×2 (00:57→09:11)
[2017-05-24] MEDS: ONDANSETRON HCL 4 MG/2 ML VIAL IVP PRN (01:00)
[2017-05-24 04:33] VITALS: BP_SYST 143
[2017-05-24] MEDS: metroNIDAZOLE 250 MG TABLET PO SCH ×3 (06:00→23:40)
[2017-05-24] MEDS: DICYCLOMINE HCL 20 MG/2 ML AMP IM SCH ×4 (06:34→23:34)
[2017-05-24 08:08] VITALS: BP_SYST 142
[2017-05-24] MEDS: NICOTINE 14 MG/24 HR PATCH.TD24 TD SCH (09:00)
[2017-05-24] MEDS: FAMOTIDINE 20 MG TABLET PO SCH (09:00)
[2017-05-24] MEDS: LOSARTAN POTASSIUM 50 MG TABLET (COZAAR) PO SCH (09:00)
[2017-05-24] MEDS: amLODIPine BESYLATE 5 MG TABLET PO SCH (09:00)
[2017-05-24] MEDS: LEVOFLOXACIN 500 MG TABLET PO SCH (09:10)
[2017-05-24] MEDS: LR 1,000 ML IV SCH ×2 (09:10→23:40)
[2017-05-24 11:15] LABS: BASOPHILS # (AUTO) 0.2 K/uL (0.0-0.2); BASOPHILS % (AUTO) 1.9 % (0.0-2.0); EOSINOPHILS # (AUTO) 0.1 K/uL (0.0-0.4); EOSINOPHILS % (AUTO) 0.9 % (0.0-4.0); HEMATOCRIT 48.4 % (36-48); LYMPHOCYTES # (AUTO) 2.9 K/uL (1.0-5.5); LYMPHOCYTES % (AUTO) 27.4 % (20.5-51.5); MEAN CORPUSCULAR HEMOGLOBIN 32 pg (27-31); MEAN CORPUSCULAR HGB CONC 33 % (32-36); MEAN CORPUSCULAR VOLUME 97 fL (79.0-98.0); MONOCYTES # (AUTO) 1.2 K/uL (0.0-1.0); MONOCYTES % (AUTO) 11.1 % (1.7-9.3); NEUTROPHILS % (AUTO) 58.7 % (40.0-70.0); PLATELET COUNT (AUTO) 273 K/uL (130-430); RED CELL DISTRIBUTION WIDTH 12.5 % (9.0-15.0); WHITE BLOOD COUNT (AUTO) 10.4 K/uL (4.8-10.8)
[2017-05-24 11:23] LABS: CALCIUM 8.7 mg/dL (8.4-11.0); CREATININE 0.59 mg/dL (0.55-1.30); POTASSIUM 3.1 mmol/L (3.5-5.1)
[2017-05-24 12:00] VITALS: BP_SYST 128
[2017-05-24 12:05] VITALS: BP_SYST 132
[2017-05-24] MEDS ORDERED: BUPIVACAINE LIPOSOME/PF 266 MG/20 ML VIAL INFIL ONE (13:21)
[2017-05-24] MEDS ORDERED: LR 1,000 ML IV SCH (14:23)
[2017-05-24] MEDS ORDERED: HYDROmorphone 1 MG INJ. 1 MG/ML AMPUL IVP PRN (14:30)
[2017-05-24] MEDS ORDERED: POTASSIUM CHLORIDE 40 MEQ in NS 250 ML IV ONE (14:30)
[2017-05-24] MEDS ORDERED: HYDROmorphone 2 MG/ML VIAL IVP PRN ×2 (14:30)
[2017-05-24] MEDS ORDERED: MEPERIDINE HCL/PF 25 MG/ML DISP.SYRIN IVP PRN (14:30)
[2017-05-24] MEDS ORDERED: LevALBUTEROL HCL 1.25 MG/0.5 ML *CONC.* VIAL.NEB (XOPENEX CONC.) INH ONE ×2 (19:00→19:08)
[2017-05-24] MEDS ORDERED: IPRATROPIUM BROM 0.5 MG/2.5 ML VIAL.NEB (ATROVENT) INH ONE (19:08)
[2017-05-24] MEDS ORDERED: HYDROmorphone 2 MG/ML VIAL ONE (19:26)
[2017-05-24 21:25] VITALS: BP_SYST 122
[2017-05-24] MEDS: DIPHENHYDRAMINE INJ 50 MG/ML VIAL IVP PRN (21:46)
[2017-05-25 00:30] VITALS: BP_SYST 135
[2017-05-25] MEDS: MORPHINE 4 MG/ML INJ. SYRINGE IVP PRN ×4 (00:38→13:24)
[2017-05-25 04:00] VITALS: BP_SYST 156
[2017-05-25] MEDS: DIPHENHYDRAMINE INJ 50 MG/ML VIAL IVP PRN ×2 (04:19→15:41)
[2017-05-25] MEDS: LR 1,000 ML IV SCH ×2 (05:22→15:41)
[2017-05-25] MEDS: metroNIDAZOLE 250 MG TABLET PO SCH ×3 (06:14→22:28)
[2017-05-25] MEDS: DICYCLOMINE HCL 20 MG/2 ML AMP IM SCH ×4 (06:14→23:46)
[2017-05-25 08:30] VITALS: BP_SYST 150
[2017-05-25] MEDS: FAMOTIDINE 20 MG TABLET PO SCH (08:38)
[2017-05-25] MEDS: amLODIPine BESYLATE 5 MG TABLET PO SCH (08:38)
[2017-05-25] MEDS: LOSARTAN POTASSIUM 50 MG TABLET (COZAAR) PO SCH (08:38)
[2017-05-25] MEDS: NICOTINE 14 MG/24 HR PATCH.TD24 TD SCH (08:39)
[2017-05-25] MEDS: LEVOFLOXACIN 500 MG TABLET PO SCH (09:34)
[2017-05-25] MEDS: HYDROcodone/ACETAMIN 5-325 MG TAB (NORCO/ VICODIN) PO PRN (11:11)
[2017-05-25 12:04] VITALS: BP_SYST 141
[2017-05-25] MEDS: KETOROLAC TROMETHAMINE 15 MG VIAL IVP PRN (15:40)
[2017-05-25 16:30] VITALS: BP_SYST 149
[2017-05-25 23:03] VITALS: BP_SYST 133
[2017-05-26 00:19] VITALS: BP_SYST 126
[2017-05-26] MEDS: MORPHINE 4 MG/ML INJ. SYRINGE IVP PRN (02:32)
[2017-05-26] MEDS: ONDANSETRON HCL 4 MG/2 ML VIAL IVP PRN (02:38)
[2017-05-26] MEDS: LR 1,000 ML IV SCH ×2 (03:40→15:46)
[2017-05-26] MEDS: HYDROcodone/ACETAMIN 5-325 MG TAB (NORCO/ VICODIN) PO PRN ×3 (03:43→15:45)
[2017-05-26 04:19] VITALS: BP_SYST 143
[2017-05-26] MEDS: metroNIDAZOLE 250 MG TABLET PO SCH ×2 (06:17→14:14)
[2017-05-26] MEDS: DICYCLOMINE HCL 20 MG/2 ML AMP IM SCH ×3 (06:17→17:30)
[2017-05-26 08:26] VITALS: BP_SYST 134
[2017-05-26] MEDS: LEVOFLOXACIN 500 MG TABLET PO SCH (09:33)
[2017-05-26] MEDS: amLODIPine BESYLATE 5 MG TABLET PO SCH (09:33)
[2017-05-26] MEDS: NICOTINE 14 MG/24 HR PATCH.TD24 TD SCH (09:33)
[2017-05-26] MEDS: FAMOTIDINE 20 MG TABLET PO SCH (09:33)
[2017-05-26] MEDS: LOSARTAN POTASSIUM 50 MG TABLET (COZAAR) PO SCH (09:33)
[2017-05-26 12:07] VITALS: BP_SYST 132
[2017-05-26] MEDS: DIPHENHYDRAMINE INJ 50 MG/ML VIAL IVP PRN (15:49)
[2017-05-26 16:01] VITALS: BP_SYST 135
[2017-05-26] MEDS ORDERED: HYDR-1189 PO (17:19)
[2017-05-26] MEDS ORDERED: DOCU-144 PO (17:19)
[2017-05-26 18:39] VITALS: BP_SYST 135
[2017-05-26 18:45] LABS: CALCIUM 8.4 mg/dL (8.4-11.0); CREATININE 0.58 mg/dL (0.55-1.30); POTASSIUM 3.1 mmol/L (3.5-5.1)
== END 2017-05-26 19:15 | disposition home or self-care (01) | DRG 330 ==
LOC: SED 10:23 → SMU 12:36
PROVIDERS: ADMIT Internal Medicine; ATTEND Internal Medicine Hospice and Palliative Medicine
PROC: 0DNS4ZZ (ICD-10-PCS; 2017-05-24)
PROC: 0DNN4ZZ Release Sigmoid Colon, Percutaneous Endoscopic Approach (ICD-10-PCS; 2017-05-24)
PROC: 0DN84ZZ Release Small Intestine, Percutaneous Endoscopic Approach (ICD-10-PCS; 2017-05-24)
PROC: 8E0W4CZ Robotic Assisted Procedure of Trunk Region, Percutaneous Endoscopic Approach (ICD-10-PCS; 2017-05-24)
PROC: 3E0T3CZ (ICD-10-PCS; 2017-05-24)
PROC: 0DBN4ZZ Excision of Sigmoid Colon, Percutaneous Endoscopic Approach (ICD-10-PCS; principal; 2017-05-24 12:30)
DX: K57.30 Diverticulosis of large intestine without perforation or abscess without bleeding (principal); K55.1 Chronic vascular disorders of intestine; N73.6 Female pelvic peritoneal adhesions (postinfective); J44.9 Chronic obstructive pulmonary disease, unspecified; F17.210 Nicotine dependence, cigarettes, uncomplicated; I10 Essential (primary) hypertension; F41.9 Anxiety disorder, unspecified; Z90.49 Acquired absence of other specified parts of digestive tract; Z90.710 Acquired absence of both cervix and uterus; Z79.899 Other long term (current) drug therapy
CPT/HCPCS: 36415; 71020-TC; 71260-TC; 80048; 80053; 81000-TC; 82150-TC; 82272; 82550-TC; 83605; 83690-TC; 85025; 85610-TC; 85651-TC; 85730-TC; 86886; 86900; 86901; 87081; 88307; 93005; 94010; 94640; 96374; 96375; 96376; 99285; C9290; J0500; J1170; J1200; J1885; J2060; J2270; J2405; J3010; J3480; J7030; J7050; J7120; Q9967

== ENCOUNTER 2017-05-30 12:57 | Inpatient (IN) | payer BC ==
[~2017-05-30] VITALS: Ht 162.6 cm; Wt 56.2 kg
[~2017-05-30 12:57] MED LIST changes: +DOCU-144 PO; -FLA250 PO; -LEVO500T20 PO
[2017-05-30] MEDS ORDERED: NACL 0.9% 1,000 ML IV ONE (12:59)
[2017-05-30 13:00] VITALS: BP_SYST 154
[2017-05-30] MEDS ORDERED: ONDANSETRON HCL 4 MG/2 ML VIAL IVP ONE ×3 (13:00→16:15)
[2017-05-30] MEDS ORDERED: MORPHINE 2 MG/ML INJ. SYRINGE IVP ONE ×3 (13:00→16:15)
[2017-05-30 13:37] LABS: EOSINOPHILS # (AUTO) 0.2 K/uL (0.0-0.4); MEAN CORPUSCULAR HGB CONC 33 % (32-36); MONOCYTES # (AUTO) 0.7 K/uL (0.0-1.0)
[2017-05-30 13:41] LABS: BASOPHILS # (AUTO) 0.2 K/uL (0.0-0.2); BASOPHILS % (AUTO) 1.3 % (0.0-2.0); EOSINOPHILS % (AUTO) 1.5 % (0.0-4.0); HEMATOCRIT 46.4 % (36-48); HEMOGLOBIN 15.4 g/dL (12.0-16.0); LYMPHOCYTES # (AUTO) 1.1 K/uL (1.0-5.5); MEAN CORPUSCULAR HEMOGLOBIN 32 pg (27-31); MEAN CORPUSCULAR VOLUME 95 fL (79.0-98.0); MONOCYTES % (AUTO) 4.7 % (1.7-9.3); NEUTROPHILS % (AUTO) 84.5 % (40.0-70.0); PLATELET COUNT (AUTO) 401 K/uL (130-430); RED BLOOD CELL COUNT(AUTO) 4.86 MIL/uL (4.2-6.2); RED CELL DISTRIBUTION WIDTH 13.1 % (9.0-15.0); WHITE BLOOD COUNT (AUTO) 14.2 K/uL (4.8-10.8)
[2017-05-30 14:20] LABS: BILIRUBIN,URINE NEGATIVE (NEGATIVE); BLOOD, URINE 1+ (NEGATIVE); CLARITY/URINE SL CLOUDY (CLEAR); COLOR,URINE YELLOW (YELLOW); GLUCOSE,URINE NEGATIVE (NEGATIVE); KETONES,URINE TRACE (NEGATIVE); LEUKOCYTE ESTERASE ,URINE NEGATIVE (NEGATIVE); NITRITE, URINE NEGATIVE (NEGATIVE); PH,URINE 8.5 (5.0-8.0); PROTEIN URINE TRACE (NEGATIVE); UROBILINOGEN,URINE 0.2 (0.2-1.0)
[2017-05-30 14:22] LABS: CALCIUM 8.5 mg/dL (8.4-11.0); CREATININE 0.73 mg/dL (0.55-1.30); POTASSIUM 3.8 mmol/L (3.5-5.1)
[2017-05-30 14:27] LABS: ALBUMIN 3.7 g/dL (3.4-4.8); TOTAL BILIRUBIN 0.5 mg/dL (0.0-1.0); TOTAL PROTEIN, SERUM 7.4 g/dL (6.4-8.3)
[2017-05-30] MEDS ORDERED: ONDANSETRON HCL 4 MG/2 ML VIAL ONE (14:27)
[2017-05-30 14:28] LABS: BACTERIA,URINE FEW /HPF (None Seen); RBC,URINE 0-3 /HPF (0-3); WBC,URINE 0-3 /HPF (0-3)
[2017-05-30] MEDS ORDERED: MORPHINE 4 MG/ML INJ. SYRINGE IVP ONE (14:45)
[2017-05-30] MEDS ORDERED: PIPERACILLIN/TAZO 3.375 GM in NS 50 ML IV ONE (16:30)
[2017-05-30] MEDS ORDERED: PIPERACILLIN/TAZOBACTAM 3.375 GM/VIAL (ZOSYN) IV ONE (16:48)
[2017-05-30 19:32] VITALS: BP_SYST 119
[2017-05-30 20:00] VITALS: BP_SYST 114
[2017-05-30] MEDS ORDERED: ACETAMINOPHEN 325 MG TABLET PO PRN (20:30)
[2017-05-30] MEDS ORDERED: MORPHINE 2 MG/ML INJ. SYRINGE IVP PRN (20:30)
[2017-05-30] MEDS: MORPHINE 4 MG/ML INJ. SYRINGE IVP PRN (22:04)
[2017-05-30] MEDS: D5NS 1,000 ML IV SCH (22:04)
[2017-05-30] MEDS: DIPHENHYDRAMINE INJ 50 MG/ML VIAL IVP PRN (22:15)
[2017-05-30] MEDS: ONDANSETRON HCL 4 MG/2 ML VIAL IVP PRN (22:15)
[2017-05-31 00:07] VITALS: BP_SYST 122
[2017-05-31] MEDS ORDERED: PIPERACILLIN/TAZOBACTAM 3.375 GM/VIAL (ZOSYN) IV ONE (00:54)
[2017-05-31] MEDS: PIPERACILLIN/TAZO 3.375/DEX-IS 50 ML IV SCH ×5 (01:22→23:14)
[2017-05-31 03:40] VITALS: BP_SYST 126
[2017-05-31] MEDS: MORPHINE 4 MG/ML INJ. SYRINGE IVP PRN ×5 (03:59→20:16)
[2017-05-31 08:04] LABS: BASOPHILS # (AUTO) 0.1 K/uL (0.0-0.2); BASOPHILS % (AUTO) 0.5 % (0.0-2.0); EOSINOPHILS # (AUTO) 0.5 K/uL (0.0-0.4); EOSINOPHILS % (AUTO) 4.5 % (0.0-4.0); HEMATOCRIT 35.3 % (36-48); HEMOGLOBIN 12.2 g/dL (12.0-16.0); LYMPHOCYTES # (AUTO) 2.1 K/uL (1.0-5.5); LYMPHOCYTES % (AUTO) 18.8 % (20.5-51.5); MEAN CORPUSCULAR HEMOGLOBIN 33 pg (27-31); MEAN CORPUSCULAR HGB CONC 35 % (32-36); MEAN CORPUSCULAR VOLUME 96 fL (79.0-98.0); MONOCYTES # (AUTO) 1.1 K/uL (0.0-1.0); MONOCYTES % (AUTO) 9.8 % (1.7-9.3); NEUTROPHILS # (AUTO) 7.3 K/uL (1.8-7.7); NEUTROPHILS % (AUTO) 66.4 % (40.0-70.0); PLATELET COUNT (AUTO) 346 K/uL (130-430); RED BLOOD CELL COUNT(AUTO) 3.66 MIL/uL (4.2-6.2); RED CELL DISTRIBUTION WIDTH 12.8 % (9.0-15.0); WHITE BLOOD COUNT (AUTO) 11.1 K/uL (4.8-10.8)
[2017-05-31] MEDS: DIPHENHYDRAMINE INJ 50 MG/ML VIAL IVP PRN ×3 (08:07→23:15)
[2017-05-31] MEDS: ONDANSETRON HCL 4 MG/2 ML VIAL IVP PRN ×3 (08:08→23:15)
[2017-05-31 08:11] VITALS: BP_SYST 133
[2017-05-31 08:11] LABS: ALBUMIN 2.8 g/dL (3.4-4.8); CREATININE 0.57 mg/dL (0.55-1.30); TOTAL BILIRUBIN 0.4 mg/dL (0.0-1.0)
[2017-05-31 08:37] LABS: POTASSIUM 2.8 mmol/L (3.5-5.1)
[2017-05-31] MEDS ORDERED: POTASSIUM CHLORIDE 20 MEQ TAB.PRT.SR PO SCH (09:30)
[2017-05-31] MEDS ORDERED: COMMUNICATION ORDER XX ONE ×2 (09:30→10:15)
[2017-05-31] MEDS: D5NS 1,000 ML IV SCH ×2 (09:35→22:30)
[2017-05-31] MEDS ORDERED: POTASSIUM CHLORIDE 40 MEQ, LIDOCAINE JECT 2% PF 100 MG 75 MG in 0.45% NS 250 ML IV ONE (10:30)
[2017-05-31 12:00] VITALS: BP_SYST 121
[2017-05-31 16:00] VITALS: BP_SYST 141
[2017-05-31] MEDS ORDERED: DICYCLOMINE HCL 10 MG CAPSULE PO PRN (19:00)
[2017-05-31] MEDS ORDERED: HYDROcodone/ACETAMIN 5-325 MG TAB (NORCO/ VICODIN) PO PRN (19:00)
[2017-05-31 20:00] VITALS: BP_SYST 127
[2017-05-31] MEDS: KETOROLAC TROMETHAMINE 15 MG VIAL IVP SCH (23:15)
[2017-06-01] VITALS (7 sets, daily range): BP systolic 121–153
[2017-06-01] MEDS: D5NS 1,000 ML IV SCH ×3 (02:30→20:17)
[2017-06-01] MEDS: KETOROLAC TROMETHAMINE 15 MG VIAL IVP SCH ×3 (07:28→11:41)
[2017-06-01] MEDS: PIPERACILLIN/TAZO 3.375/DEX-IS 50 ML IV SCH ×4 (07:29→23:34)
[2017-06-01] MEDS: MORPHINE 4 MG/ML INJ. SYRINGE IVP PRN (08:28)
[2017-06-01] MEDS ORDERED: NICOTINE 14 MG/24 HR PATCH.TD24 TD SCH (12:30)
[2017-06-01 13:13] LABS: CALCIUM 8.3 mg/dL (8.4-11.0); CREATININE 0.62 mg/dL (0.55-1.30); POTASSIUM 3.5 mmol/L (3.5-5.1)
[2017-06-01 13:18] LABS: ALBUMIN 3.1 g/dL (3.4-4.8); TOTAL BILIRUBIN 0.4 mg/dL (0.0-1.0); TOTAL PROTEIN, SERUM 6.6 g/dL (6.4-8.3)
[2017-06-01 13:20] LABS: BASOPHILS # (AUTO) 0.1 K/uL (0.0-0.2); BASOPHILS % (AUTO) 0.9 % (0.0-2.0); EOSINOPHILS # (AUTO) 0.6 K/uL (0.0-0.4); EOSINOPHILS % (AUTO) 6.4 % (0.0-4.0); HEMATOCRIT 37.6 % (36-48); HEMOGLOBIN 12.7 g/dL (12.0-16.0); LYMPHOCYTES # (AUTO) 2.3 K/uL (1.0-5.5); LYMPHOCYTES % (AUTO) 23.7 % (20.5-51.5); MEAN CORPUSCULAR HEMOGLOBIN 33 pg (27-31); MEAN CORPUSCULAR HGB CONC 34 % (32-36); MEAN CORPUSCULAR VOLUME 97 fL (79.0-98.0); MONOCYTES % (AUTO) 9.7 % (1.7-9.3); NEUTROPHILS # (AUTO) 5.8 K/uL (1.8-7.7); NEUTROPHILS % (AUTO) 59.3 % (40.0-70.0); PLATELET COUNT (AUTO) 388 K/uL (130-430); RED BLOOD CELL COUNT(AUTO) 3.86 MIL/uL (4.2-6.2); RED CELL DISTRIBUTION WIDTH 12.5 % (9.0-15.0); WHITE BLOOD COUNT (AUTO) 9.8 K/uL (4.8-10.8)
[2017-06-01] MEDS ORDERED: METOCLOPRAMIDE HCL 10 MG/10 ML UDC GT PRN (15:30)
[2017-06-01] MEDS: LACTOBACILLUS RHAMNOSUS GG 1 CAP CAPSULE PO SCH (20:07)
[2017-06-01] MEDS: DIPHENHYDRAMINE INJ 50 MG/ML VIAL IVP PRN (20:09)
[2017-06-01] MEDS: HYDROcodone/ACETAMIN 10-325 MG TAB PO PRN (20:09)
[2017-06-02] MEDS: HYDROcodone/ACETAMIN 10-325 MG TAB PO PRN ×4 (00:18→14:48)
[2017-06-02 04:00] VITALS: BP_SYST 129
[2017-06-02] MEDS: DIPHENHYDRAMINE INJ 50 MG/ML VIAL IVP PRN (05:52)
[2017-06-02] MEDS: PIPERACILLIN/TAZO 3.375/DEX-IS 50 ML IV SCH ×2 (05:52→13:08)
[2017-06-02] MEDS: D5NS 1,000 ML IV SCH (05:53)
[2017-06-02 08:12] VITALS: BP_SYST 143
[2017-06-02] MEDS: LACTOBACILLUS RHAMNOSUS GG 1 CAP CAPSULE PO SCH (08:58)
[2017-06-02] MEDS ORDERED: NICOTINE 14 MG/24 HR PATCH.TD24 TD SCH (09:00)
[2017-06-02] MEDS ORDERED: LEVOFLOXACIN 500 MG TABLET PO SCH (10:00)
[2017-06-02] MEDS ORDERED: LEVO500T20 PO (15:18)
[2017-06-02] MEDS ORDERED: LACT1CAP57 PO (15:18)
[2017-06-02] MEDS ORDERED: REGL10 GT (15:18)
[2017-06-02 15:25] VITALS: BP_SYST 132
[2017-06-02] MEDS ORDERED: HYDR-4100 PO (16:01)
== END 2017-06-02 16:25 | disposition home or self-care (01) | DRG 948 ==
LOC: SED 12:57 → SMU 18:55
PROVIDERS: ADMIT Surgery; ATTEND Surgery
DX: G89.18 Other acute postprocedural pain (principal); R11.2 Nausea with vomiting, unspecified; F41.9 Anxiety disorder, unspecified; I10 Essential (primary) hypertension; D72.829 Elevated white blood cell count, unspecified; Z79.899 Other long term (current) drug therapy; Z90.49 Acquired absence of other specified parts of digestive tract; Z90.710 Acquired absence of both cervix and uterus
CPT/HCPCS: 36415; 80053; 81000-TC; 83605; 83690-TC; 83735-TC; 85025; 85610-TC; 85730-TC; 86886; 86900; 86901; 87040-TC; 87081; 96361; 96365; 96375; 96376; 99285; J1200; J1885; J2270; J2405; J2543; J3480; J7030; J7042; J7060